=== PATIENT | female | born 1995 | race American Indian/Alaskan Native ===

== ENCOUNTER 2017-07-25 09:00 | Inpatient (IN) | payer OTHER ==
[2017-07-25] MEDS ORDERED: TUBERCULIN PPD 5 TU/0.1ML SYRINGE (IN PATIENT USE ONLY) ID ONE (13:54)
[2017-07-25] MEDS ORDERED: BUTORPHANOL TARTRATE 1 MG/ML VIAL IVPB ONE (14:50)
[2017-07-25] MEDS ORDERED: PROMETHAZINE HCL 25 MG/1 ML VIAL IVPUSH ONE (14:50)
[2017-07-25] MEDS ORDERED: DINOPROSTONE 10 MG VAGINAL SUPPOSITORY VG ONE (15:00)
[2017-07-25 15:06] LABS: BASOPHIL 0.4 % (0-2.0); EOSINOPHIL 1.1 % (0-4.5); MCH 28.5 pg (25.7-33.7); MEAN CELL VOLUME 83.8 fl (80-96); NEUTROPHILS 73.2 % (42.8-82.8); PLATELET COUNT 180 K/MM3 (134-434); RDW 16.3 % (11.6-15.6); WHITE BLOOD COUNT 7.7 K/mm3 (4.0-10.0)
[2017-07-25 15:09] VITALS: BMI 29.5
[2017-07-25 15:18] LABS: INR 0.88 (0.82-1.09); PROTHROMBIN TIME (PATIENT) 9.7 SEC (9.98-11.88)
[2017-07-25 15:21] LABS: ACTIVATED PTT 29.9 SECONDS (26.9-34.4)
[2017-07-25 15:31] LABS: ANION GAP 10 (8-16); CALCIUM 7.8 mg/dL (8.5-10.1); CO2 21 mmol/L (21-32); CREATININE 0.7 mg/dL (0.55-1.02); GLUCOSE,RANDOM 106 mg/dL (74-106)
--- NOTE | 2017-07-25 16:51 | HP ---
Past Medical History - Admission History of Present Illness: 22 y/o with SIUP at 37.5 weeks gestation (EDC 08/10/17) was seen with MFM today for h/o GDMA2 (on Glyburide 2.5mg daily). Ultrasound showed EFW <10%ile and elevated MCA dopplers concerning for head sparing IUGR. Pt sent to L&D for NST and they recommend delivery. comlpicated by GDMA2 - on glyburide , and IUGR. Otherwise uncomplicated care. GBS positive. HIV negative. History Source: Patient, Medical Record Limitations to Obtaining History: No Limitations - Past Medical History Cardiovascular: No: HTN, NC Pulmonary: No: Asthma Gastrointestinal: No: Gastritis, GERD Hepatobiliary: No: Hepatitis B, Hepatitis C Renal/: No: Hematuria Reproductive: No: Fibroids, PID, Polycystic Ovary Syndrome ...: 1 ...Para: 0 ...Term: 0 ...: 0 ...Spon : 0 ...Induced : 0 ...Multiple Gestation: 0 ...EDC by Ric: 08/10/17 Infectious Disease: No: HIV Psych: No: Bipolar, Depression Endocrine: Yes: Diabetes Mellitus (gestational) - Past Surgical History Past Surgical History: Yes: None Hx Myomectomy: No Hx Transabdominal Cerclage: No - Smoking History Smoking history: Never smoked Have you smoked in the past 12 months: No - Alcohol/Substance Use Hx Alcohol Use: No - Social History Usual Living Arrangement: Yes: With Spouse ADL: Independent History of Recent Travel: No Home Medications - Allergies Allergies/Adverse Reactions: Allergies Allergy/AdvReac Type Severity Reaction Status Date / Time No Known Allergies Allergy Verified 07/25/17 13:59 - Home Medications Home Medications: Ambulatory Orders Vit/Iron Fumarate/FA [ Tablet] 1 tab PO DAILY 05/09/17 Ferrous Sulfate [Feosol] 325 mg PO DAILY 07/25/17 Glyburide 2.5 mg PO HS 07/25/17 Review of Systems - Review of Systems Constitutional: reports: No Symptoms Eyes: reports: No Symptoms HENT: reports: No Symptoms Neck: reports: No Symptoms Cardiovascular: reports: No Symptoms Respiratory: reports: No Symptoms Gastrointestinal: reports: No Symptoms Genitourinary: reports: No Symptoms Breasts: reports: No Symptoms Reported Musculoskeletal: reports: Other (right arm/hand discomfort and numbness c/w carpal tunnel) Integumentary: reports: No Symptoms Neurological: reports: No Symptoms Endocrine: reports: No Symptoms Hematology/Lymphatic: reports: No Symptoms Psychiatric: reports: No Symptoms Physical Exam - Maternity Vital Signs: Vital Signs Temperature 97.6 F 07/25/17 16:00 Pulse Rate 73 07/25/17 16:00 Respiratory Rate 18 07/25/17 16:00 Blood Pressure 126/89 07/25/17 16:00 O2 Sat by Pulse Oximetry (%) Constitutional: Yes: Well Nourished, No Distress, Calm Eyes: Yes: Conjunctiva Clear, EOM Intact HENT: Yes: Atraumatic, Normocephalic Neck: Yes: Supple, Trachea Midline Cardiovascular: Yes: Regular Rate and Rhythm Lungs: Clear to auscultation Breast(s): Yes: WNL - Abdominal Exam/OB Number of Fetuses: Single Presentation: Vertex Contractions: No Category: I Accelerations: None Decelerations: None - Vaginal Exam/OB Vaginal Bleediing: No Dilatation (cm): 0 Effacement (%): 0 Amniotic Membrane Status: Intact Presentation: Vertex/Position Station: -3 - Physical Exam Edema: Yes Edema: LLE: 1+, RLE: 1+ Psychiatric: Yes: Alert, Oriented - Labs Lab Results: CBC, BMP 07/25/17 14:30 07/25/17 14:30 Hemorrhage Risk Assessment - Risk Factors Medium Risk Factors: Yes: None High Risk Factors: Yes: None Risk Score: 1 Risk Level: Medium Risk Problem List - Problems (1) Diabetes, gestational Code(s): O24.419 - GESTATIONAL DIABETES MELLITUS IN , UNSP CONTROL (2) Intrauterine growth restriction affecting care of mother Code(s): O36.5990 - MATERN CARE FOR OTH OR SUSP POOR FETL GRTH, UNSP TRI, UNSP Assessment/Plan 22 y/o with SIUP at 37.5 weeks, IUGR with elevated MCA dopplers and A2GDM - AFVSS - IUGR - for labor induction - cervidil placed at approx 1445, cervix closed. Will re assess in 12 hours for possible 2nd cervidil vs. pitocin - GDMA2- will check BGs AC/HS at this time, treat as appropriate, when in active labor will increase to Q2 to determine need for insulin - GBS positive - for ampicillin with ROM/labor
[2017-07-25 17:46] LABS: SGOT/AST 21 U/L (15-37)
[2017-07-25 18:56] LABS: URINE APPEARANCE CLEAR; URINE BILIRUBIN NEGATIVE (NEGATIVE); URINE BLOOD 1+ (NEGATIVE); URINE COLOR STRAW; URINE GLUCOSE (UA) NEGATIVE (NEGATIVE); URINE KETONE NEGATIVE (NEGATIVE); URINE LEUK ESTERASE NEGATIVE (NEGATIVE); URINE NITRITE NEGATIVE (NEGATIVE); URINE UROBILINOGEN NEGATIVE mg/dL (0.2-1.0)
[2017-07-25 18:57] LABS: URINE PROTEIN 2+ (NEGATIVE)
[2017-07-25 18:59] LABS: URINE BACTERIA RARE /hpf (NONE SEEN); URINE RBC 13 /hpf (0-3); URINE WBC 1 /hpf (3-5)
[2017-07-25] MEDS ORDERED: ELECTROLYTE-148 SOLN 1,000 ML IV SCH (20:00)
[2017-07-26] MEDS ORDERED: ONDANSETRON 4 MG/2 ML VIAL IVPB PRN (00:50)
[2017-07-26] MEDS ORDERED: CITRIC ACID/SODIUM CITRATE 30 ML UNIT-DOSE CUP PO ONE (00:52)
--- NOTE | 2017-07-26 01:04 | PN ---
Progress Note (short form) - Note Progress Note: 22 yo , @ 37.6 weeks gestation, admitted for IOL due to IUGR. Patient is GDMA and was on Glyburide. FHR : + early decelerations Hyder : + contactions VE : 3-4 / 100/-2 A/P : IUP @ 37 weeks IUGR GDMA R/O Pre - Eclampsia Pre op for Consent signed Prep and shave Anesthesia to see patient
[2017-07-26 01:19] LABS: ALBUMIN 2.6 g/dl (3.4-5.0); ANION GAP 13 (8-16); CALCIUM 7.8 mg/dL (8.5-10.1); CO2 20 mmol/L (21-32); CREATININE 0.6 mg/dL (0.55-1.02); GLUCOSE,RANDOM 91 mg/dL (74-106); SGOT/AST 21 U/L (15-37); SGPT/ALT 29 U/L (12-78)
[2017-07-26 01:20] LABS: ALK PHOS 257 U/L (45-117); BILIRUBIN,TOTAL 0.3 mg/dL (0.2-1.0); TOT PROT 6.2 g/dl (6.4-8.2)
[2017-07-26] MEDS ORDERED: METHYLERGONOVINE MALEATE 0.2 MG/1 ML AMP IM PRN (02:22)
[2017-07-26 02:23] LABS: ARTERIAL BLD GAS O2 SATURATION 21.6 % (90-98.9); ARTERIAL BLOOD GAS BASE EXCESS -3.2 meq/l (-2-2); ARTERIAL BLOOD GAS HCO3 25.9 meq/L (22-26)
[2017-07-26 02:24] LABS: ARTERIAL BLOOD GAS pH 7.23 (7.35-7.45)
[2017-07-26 02:25] LABS: ARTERIAL BLOOD GAS PO2 15.2 mmHg (80-100)
[2017-07-26 02:27] LABS: VENOUS BLOOD GAS HCO3 21.8 meq/L (19-25); VENOUS PH 7.31 (7.32-7.42)
--- NOTE | 2017-07-26 02:29 | OP ---
Operative Note - Note: Operative Date: 07/26/17 Pre-Operative Diagnosis: Non Reassuring Heart rate / IUGR / GDMA Operation: Primary low transverse Findings: SGA baby girl Post-Operative Diagnosis: Same as Pre-op Surgeon: Cristina Rodríguez [employer]ash[employer] Designer: Virginia Braxton Anesthesia: Spinal Specimens Removed: Placenta Estimated Blood Loss (mls): 600
[2017-07-26] MEDS ORDERED: AMPICILLIN 2 GM/100 ML BAG (PRE-DOCKED) IVPB ONE (03:15)
[2017-07-26] MEDS ORDERED: MAGNESIUM 4GM/H20 - 100 ML IVPB ONE (04:45)
[2017-07-26] MEDS: OXYTOCIN 20 UNITS in 0.9% NS 1,000 ML IV SCH ×2 (05:15→16:29)
[2017-07-26] MEDS: MAGNESIUM SULFATE 20GM/500ML - 500 ML IVPB SCH ×2 (05:45→17:34)
[2017-07-26 09:30] LABS: MCH 28.2 pg (25.7-33.7); MCHC 33.3 g/dl (32.0-36.0); MEAN CELL VOLUME 84.8 fl (80-96); MEAN PLT VOLUME 9.2 fl (7.5-11.1); PLATELET COUNT 193 K/MM3 (134-434); RDW 16.2 % (11.6-15.6); WHITE BLOOD COUNT 17.8 K/mm3 (4.0-10.0)
[2017-07-26 10:27] LABS: ALBUMIN 2.1 g/dl (3.4-5.0); ANION GAP 10 (8-16); CO2 22 mmol/L (21-32); CREATININE 0.7 mg/dL (0.55-1.02); GLUCOSE,RANDOM 103 mg/dL (74-106); SGOT/AST 23 U/L (15-37); SGPT/ALT 27 U/L (12-78)
[2017-07-26 10:29] LABS: ALK PHOS 219 U/L (45-117); BILIRUBIN,TOTAL 0.4 mg/dL (0.2-1.0); TOT PROT 5.3 g/dl (6.4-8.2)
[2017-07-26] MEDS ORDERED: ACETAMINOPHEN 1000 MG/100 ML VIAL (NON FORMULARY) IVPB PRN (16:48)
[2017-07-26] MEDS: PRENATAL VITAMINS W/ FOLIC ACID TABLET (FP) PO SCH (17:02)
[2017-07-27] MEDS: SIMETHICONE 80 MG TAB.CHEW (FP) PO PRN ×5 (00:41→22:14)
[2017-07-27] MEDS: oxyCODONE HCL 5 MG TABLET PO PRN ×5 (00:41→22:14)
[2017-07-27] MEDS ORDERED: BISACODYL 10 MG SUPP.RECT RC PRN (02:22)
[2017-07-27] MEDS: OXYTOCIN 20 UNITS in 0.9% NS 1,000 ML IV SCH (08:56)
[2017-07-27] MEDS: PRENATAL VITAMINS W/ FOLIC ACID TABLET (FP) PO SCH (09:24)
--- NOTE | 2017-07-27 09:33 | PN ---
Progress Note, Physician Chief Complaint: 22 y/o female s/p C/S, day 2, currently with urinary retention, rod was reinserted, draining copious amount of urine. Patient is afebrile, no pain. - Current Medication List Current Medications: Active Medications Acetaminophen (Ofirmev Injection -) 1,000 mg IVPB Q6H PRN PRN Reason: PAIN Last Admin: 07/26/17 16:20 Dose: 1,000 mg Bisacodyl (Dulcolax Suppository -) 10 mg RC PRN PRN PRN Reason: CONSTIPATION Diphenhydramine HCl (Benadryl Injection -) 25 mg IVPUSH Q4H PRN PRN Reason: Pruritis Last Admin: 07/26/17 08:15 Dose: 25 mg Diphtheria/Tetanus/Acell Pertussis (Boostrix -) 0.5 ml IM .ONCE ONE Stop: 07/28/17 10:01 Oxytocin/Sodium Chloride (Normal Saline+20 Units Oxytocin -) 1,000 mls @ 125 mls/hr IV ASDIR ARGELIA Last Admin: 07/27/17 08:56 Dose: Not Given Methylergonovine Maleate (Methergine Injection -) 0.2 mg IM Q4H PRN PRN Reason: Excessive Bleeding (L&D) Oxycodone HCl (Roxicodone -) 5 mg PO Q4H PRN PRN Reason: PAIN LEVEL 1-5 Last Admin: 07/27/17 06:30 Dose: 5 mg Multivit/Folic Acid/Iron ( Vitamins (Sjr) -) 1 tab PO DAILY ARGELIA Last Admin: 07/27/17 09:24 Dose: 1 tab Simethicone (Mylicon -) 80 mg PO Q4H PRN PRN Reason: GAS Last Admin: 07/27/17 06:30 Dose: 80 mg - Objective Vital Signs: Vital Signs Temperature 99 F 07/27/17 06:00 Pulse Rate 82 07/27/17 06:00 Respiratory Rate 20 07/27/17 06:00 Blood Pressure 120/98 07/27/17 06:00 O2 Sat by Pulse Oximetry (%) 100 07/26/17 05:15 Constitutional: Yes: Well Nourished, No Distress, Calm Eyes: Yes: WNL HENT: Yes: WNL Neck: Yes: WNL Cardiovascular: Yes: WNL Respiratory: Yes: WNL Gastrointestinal: Yes: Normal Bowel Sounds, Soft ...Rectal Exam: Yes: Deferred Genitourinary: Yes: Rod Present Breast(s): Yes: WNL Musculoskeletal: Yes: WNL Extremities: Yes: WNL Edema: LLE: Trace, RLE: Trace Peripheral Pulses WNL: Yes Integumentary: Yes: WNL Wound/Incision: Yes: Dressing Dry and Intact Neurological: Yes: Alert, Oriented ...Motor Strength: WNL Psychiatric: Yes: Alert, Oriented Labs: CBC, BMP 07/26/17 09:20 INR, PTT INR 0.88 (0.82-1.09) 07/25/17 14:30 Assessment/Plan Rod currently insitu due to urinary retention, plan to remove rod at noon, if urinary retention persist after the removal of the rod, consider urological consultation. Encourage ambulation once rod is removed. Continue post op care. Continue breast care
--- NOTE | 2017-07-27 10:54 | PN ---
Progress Note (short form) - Note Progress Note: Anesthesia postop note, POD#1. pat seen and examined. VSS. No post anesthesia complications.v signed off.
[2017-07-27 11:47] LABS: BASOPHIL 0.3 % (0-2.0); EOSINOPHIL 0.4 % (0-4.5); MCH 27.9 pg (25.7-33.7); MCHC 32.8 g/dl (32.0-36.0); MEAN PLT VOLUME 9.5 fl (7.5-11.1); NEUTROPHILS 81.2 % (42.8-82.8); PLATELET COUNT 171 K/MM3 (134-434); RDW 16.8 % (11.6-15.6); WHITE BLOOD COUNT 11.7 K/mm3 (4.0-10.0)
[2017-07-28] MEDS: SIMETHICONE 80 MG TAB.CHEW (FP) PO PRN ×4 (03:53→21:42)
[2017-07-28] MEDS: oxyCODONE HCL 5 MG TABLET PO PRN ×4 (03:53→21:42)
[2017-07-28] MEDS: ACETAMINOPHEN 325 MG TABLET (FP) PO PRN ×4 (03:53→21:43)
--- NOTE | 2017-07-28 09:01 | PN ---
Post Progress Note - Subjective Subjective: Pt seen/evaluated and doing well. Pain controlled. Tolerating diet, voiding, passing flatus, ambulating. Pt denies any BENJAMIN/epigastric or RUQ pain or changes in vision. BPs have been normal to mild range since delivery. Type of Delivery: Primary C/S Vital Signs: Vital Signs Temperature 98.2 F 07/28/17 06:00 Pulse Rate 84 07/28/17 06:00 Respiratory Rate 20 07/28/17 06:00 Blood Pressure 140/82 07/28/17 06:00 O2 Sat by Pulse Oximetry (%) 100 07/26/17 05:15 Uterus: Yes: Fundus Firm, Fundus below umbilicus Incision: Yes: Sutures intact Abdomen/GI: Yes: Abdomen soft, Tender (appropriate post surgical tenderness), Passing flatus, Tolerating PO Lochia: Yes: Rubra Lochia, amount: Small Extremities: Yes: Calves non-tender, Edema (+1 LE edema b/l , nonpitting. +2 DTRs b/l without clonus) Perineum: Yes: Intact Activity: Ambulating - Labs Labs: CBC WBC 11.7 K/mm3 (4.0-10.0) H D 07/27/17 06:00 RBC 4.03 M/mm3 (3.60-5.2) 07/27/17 06:00 Hgb 11.2 GM/dL (10.7-15.3) D 07/27/17 06:00 Hct 34.3 % (32.4-45.2) 07/27/17 06:00 MCV 85.0 fl (80-96) 07/27/17 06:00 MCH 27.9 pg (25.7-33.7) 07/27/17 06:00 MCHC 32.8 g/dl (32.0-36.0) 07/27/17 06:00 RDW 16.8 % (11.6-15.6) H 07/27/17 06:00 Plt Count 171 K/MM3 (134-434) 07/27/17 06:00 MPV 9.5 fl (7.5-11.1) 07/27/17 06:00 Neutrophils % 81.2 % (42.8-82.8) 07/27/17 06:00 Lymphocytes % 15.2 % (8-40) D 07/27/17 06:00 Monocytes % 2.9 % (3.8-10.2) L 07/27/17 06:00 Eosinophils % 0.4 % (0-4.5) 07/27/17 06:00 Basophils % 0.3 % (0-2.0) 07/27/17 06:00 Retic Count 2.41 % (0.5-1.5) H 07/25/17 17:15 Haptoglobin 65 mg/dL (34-200) 07/25/17 17:15 Problem List - Problems (1) Diabetes, gestational Code(s): O24.419 - GESTATIONAL DIABETES MELLITUS IN , UNSP CONTROL (2) Intrauterine growth restriction affecting care of mother Code(s): O36.5990 - MATERN CARE FOR OTH OR SUSP POOR FETL GRTH, UNSP TRI, UNSP (3) Pre-eclampsia affecting childbirth Code(s): O14.94 - UNSPECIFIED PRE-ECLAMPSIA, COMPLICATING CHILDBIRTH Assessment/Plan 22 y/o POD #2 s/p primary delivery for recurrent variable decelerations , also GDMA2 and PreEclampsia - AFVSS - PreEclampsia - s/p 24 hours of magnesium sulfate. Bps have been stable post delivery. Asymptomatic. Will monitor. - GDMA2- BGs stable post - will re evaluate as outpatient - pt with urinary retention on POD#1, now urinating without difficulty - regular diet, PO pain meds, routine care
[2017-07-28] MEDS ORDERED: DIPHTH,PERTUSS(ACELL),TET 0.5 ML DISP.SYRIN IM ONE (10:00)
[2017-07-28] MEDS: PRENATAL VITAMINS W/ FOLIC ACID TABLET (FP) PO SCH (10:16)
[2017-07-28] MEDS: OXYTOCIN 20 UNITS in 0.9% NS 1,000 ML IV SCH (10:23)
[2017-07-29] MEDS ORDERED: oxyCODONE HCL 5 MG TABLET ONE (06:20)
[2017-07-29] MEDS ORDERED: oxyCODONE HCL 5 MG TABLET PO PRN (06:25)
[2017-07-29] MEDS: SIMETHICONE 80 MG TAB.CHEW (FP) PO PRN (06:29)
[2017-07-29] MEDS: ACETAMINOPHEN 325 MG TABLET (FP) PO PRN (06:31)
[2017-07-29 08:38] LABS: BASOPHIL 0.2 % (0-2.0); EOSINOPHIL 2.2 % (0-4.5); MCH 28.1 pg (25.7-33.7); MCHC 33.1 g/dl (32.0-36.0); MEAN CELL VOLUME 84.8 fl (80-96); MEAN PLT VOLUME 8.3 fl (7.5-11.1); NEUTROPHILS 81.6 % (42.8-82.8); PLATELET COUNT 218 K/MM3 (134-434); RDW 16.8 % (11.6-15.6); WHITE BLOOD COUNT 10.6 K/mm3 (4.0-10.0)
--- NOTE | 2017-07-29 08:48 | PN ---
Progress Note (short form) - Note Progress Note: s/p primary c/s pod3 preoperative diagnosis variable heart deceleration, mild preeclampsia current condition stable, b/p stable but borderline normal bowel functions condition stable plan to continue current care vss
[2017-07-29] MEDS: PRENATAL VITAMINS W/ FOLIC ACID TABLET (FP) PO SCH (09:17)
[2017-07-29] MEDS ORDERED: LABETALOL HCL 200 MG TABLET (FP) PO SCH (10:15)
--- NOTE | 2017-07-29 12:56 | DS ---
Physical Exam-APPLIANCE INSTALLER Vital Signs: Vital Signs Temperature 99.0 F 07/29/17 10:00 Pulse Rate 89 07/29/17 10:00 Respiratory Rate 20 07/29/17 10:00 Blood Pressure 130/83 07/29/17 11:05 O2 Sat by Pulse Oximetry (%) 100 07/26/17 05:15 Labs: CBC, BMP 07/29/17 08:00 07/26/17 09:20 Delivery - Delivery Section: Primary, Low Flap Transverse Type of Anesthesia: Spinal Episiotomy/Laceration: None EBL (cc): 600 Delivery, Single - Stages of Labor Date 1st Stage Initiatied: 07/25/17 Time 1st Stage Initiated: 19:00 Date of Delivery: 07/26/17 Time of Delivery: 01:46 Time Placenta Delivered: 01:47 - Condition of Infant Geothermal Operations Engineer/Children'S Nursery Assistant Present: Yes Name: Marti Dominique Gender: Female Weight: 5 lb 9 oz Position: Left, OT Total Hours ROM (Hrs/Mins): 1h27m - 1 Minute Total Score: 9 5 Minutes Total Score: 9 - [place] Feeding Plan Initial Plan: Elected not to breastfeed exclusively throughout hospitalization Discharge Summary Reason For Visit: INDUCTION OF LABOR Current Active Problems Diabetes, gestational (Acute) Intrauterine growth restriction affecting care of mother (Acute) Pre-eclampsia affecting childbirth (Acute) Procedures: Principal: Primary delivery for variable decelerations. Was induced for IUGR and GDM. Hospital Course: Patient admitted on 07/25/17 from [facility] office due to IUGR - patient planned for labor induction. Cervidil placed 07/25 and early interventionist 07/26 due to recurrent variable decelerations patient underwent primary delivery. Patient also with antepartum diagnosis of A2GDM on glyburide - BGMs wnl throughout entire stay. Pt diagnosed with pre Eclampsia upon admission, was on magnesium after delivery. On post op day 3 patients blood pressure were stable in the normal to mild range on no medications and mom was asymptomatic. Patient was discharged home with instructions to follow up in office in 2 days for blood pressure check. Condition: Good - Instructions Diet, Activity, Other Instructions: Physical activity Resume your normal everyday activity as tolerated no heavy lifting or exercise until seen by your surgeon. You may walk unlimited amounts and climb stairs. You may resume driving the car when you feel safe and comfortable behind the wheel. No sexual activity as instructed. Wound care If there are tapes on the skin under leave them in place. They will peel off in the next 7 to 10 days. Do Not Peel them off. You may shower the day after surgery. If there are tapes present on the skin, you may shower over them. Diet There are no dietary restrictions. Eat healthy, high-fiber foods. Drink 6 to 8 glasses of liquid each day. This will assist in keeping your bowels regular. Pain management You may take Tylenol extra strength for mild pain. If any prescription medication is ordered should be taken as prescribed for moderate to severe pain. Call MD for any of the following: Severe pain not relieved by medication Fever of 101 or higher Excessive bleeding or drainage on dressing Inability to urinate Severe Headache, changes in your vision or upper abdominal pain not related to your incision Please follow up this week in the office for a blood pressure check. Referrals: Nadiya Angel DO [Staff Physician] - (DISCHARGE HOME; IF HEADACHE, BLURRED VISION, OR EPIGASTRIC DISCOMFORT CALL MD; PT INSTRUCTED TO FOLLOW UP IN OFFICE IN 2 DAYS FOR B/P CHECK INSTRUCTED BY DR ANGEL;) Disposition: HOME - Home Medications Comprehensive Discharge Medication List: Ambulatory Orders Vit/Iron Fumarate/FA [ Tablet] 1 tab PO DAILY 05/09/17 Ferrous Sulfate [Feosol] 325 mg PO DAILY 07/25/17 Glyburide 2.5 mg PO HS 07/25/17
[2017-07-29 13:12] VITALS: BP 133/80; PULSE 87; TEMP 98.8
--- NOTE | 2017-07-31 08:46 | PATH ---
Surgical Pathology Report Patient Name: GRETTA RIDDLE Med. Rec. #: [id number] /Age/Gender: 1995 (Age: 22) / F Account: [id number] Location: [facility] OBS/RIVETER HELPER Taken: 07/26/2017 Received: 07/28/2017 Reported: 07/31/2017 Physicians: Cristina Rodríguez M.D. Specimen(s) Received PLACENTA Clinical History , 37.6 weeks Primary c/section for nonreassuring heart rate Final Diagnosis PLACENTA, DELIVERY: INTACT, SMALL (<400 GM) THIRD TRIMESTER PLACENTA WITH MODERATE PREVILLOUS, PERIVILLOUS, AND PRECHORIONIC FIBRIN DEPOSITION, FOCAL CALCIFICATION THREE VESSEL UMBILICAL CORD, AND PLACENTAL MEMBRANES WITH FOCAL AMNION HYPERPLASIA. Electronically Signed Mata Galeano M.D. Gross Description The specimen is received fresh, labeled "placenta" and is a 377 gram, 16.0 x 12.5 x 2.3 cm placenta with attached membranes and umbilical cord. The attached membranes are gonzalez, translucent with focal opacities and insert marginally. The umbilical cord measures 14 cm in length and averages 0.9 cm in diameter. The cord inserts eccentrically, 6 cm to the nearest margin. No true knots or strictures are identified. Cut surface of the umbilical cord reveals 3 vessels. The surface is orozco-blue with fibrin deposition and appropriate caliber vessels. The maternal surface is red-brown and intact. Sectioning reveals red-brown, spongy parenchyma. No focal lesions are identified. Brass Sorter sections are submitted in three cassettes as follows: 1- membrane rolls and umbilical cord; 2-3- full thickness sections of placenta. 07/29/2017 [facility]07/29/2017
--- NOTE | 2017-08-25 00:54 | OP ---
DATE OF OPERATION: 07/25/2017 PREOPERATIVE DIAGNOSIS: Intrauterine at 37 weeks with gestational diabetes mellitus, intrauterine growth retardation, nonreassuring heart rate. POSTOPERATIVE DIAGNOSIS: Intrauterine at 37 weeks with gestational diabetes mellitus, intrauterine growth retardation, nonreassuring heart rate. PROCEDURE: Primary low transverse section. SURGEON: Cristina Rodríguez MD AD TAKER: Virginia Braxton MD ANESTHESIA: Spinal. COMPLICATIONS: None. ESTIMATED BLOOD LOSS: 600 mL. PROCEDURE: Patient was taken to the operating room where spinal anesthesia was administered. Patient was then prepped and draped in proper sterile fashion. A Pfannenstiel skin incision was made and carried down through the underlying layer of fascia. The fascia was incised in the midline and extended laterally. The superior aspect of the fascial incision was then grasped with a Serge clamp, elevated, and the rectus muscle was dissected off bluntly. Attention was then turned to the inferior aspect of the fascial incision, which in a similar fashion was then grasped with Serge clamp, elevated, and the rectus muscle was then dissected off bluntly. The rectus muscle was then in the midline. The peritoneum was identified and entered sharply with Metzenbaum scissors. The peritoneal incision was then incised using Metzenbaum scissors and extended superiorly and inferiorly with good visualization of the bladder. The vesicouterine peritoneum was then grasped with a pickup and entered sharply with Metzenbaum scissors. This incision was extended laterally and the bladder flap was created digitally. The bladder flap was then reinserted. The lower uterine segment was then incised using a 10-blade. The baby was then delivered atraumatically. Nose and mouth were suctioned. The infant was handed to the awaiting hand mexican food maker. The placenta was then removed manually. The uterus was exteriorized and cleared of all clots and debris. The uterine incision was repaired using 0 Biosyn in a running locked fashion. A 2nd layer of the same suture was used as a means to provide excellent hemostasis. The pelvis was irrigated. The uterus was returned to the abdomen. The peritoneum was closed using 2-0 Biosyn. The fascia was reapproximated using 0 Vicryl in a running fashion. The skin was closed in a subcuticular fashion using 3-0 Vicryl. The patient tolerated the procedure well. Patient was taken to PACU in stable condition. PATHOLOGY: Placenta. Michelle ALBRECHT/[id number] MTDD
== END 2017-07-29 15:00 | disposition home or self-care (01) | DRG 540 ==
LOC: JDEL 09:00 → JLDR 13:30 → J3W 07-26 17:18
PROVIDERS: ADMIT Obstetrics & Gynecology; ATTEND Obstetrics & Gynecology
PROC: 3E0P7GC Introduction of Other Therapeutic Substance into Female Reproductive, Via Natural or Artificial Opening (ICD-10-PCS; 2017-07-25)
PROC: 10D00Z1 Extraction of Products of Conception, Low, Open Approach (ICD-10-PCS; principal; 2017-07-26)
DX: O14.03 Mild to moderate pre-eclampsia, third trimester (principal); O76 Abnormality in fetal heart rate and rhythm complicating labor and delivery; O24.429 Gestational diabetes mellitus in childbirth, unspecified control; Z3A.37 37 weeks gestation of pregnancy; Z22.330 Carrier of Group B streptococcus; O36.5930 Maternal care for other known or suspected poor fetal growth, third trimester, not applicable or unspecified; Z37.0 Single live birth
CPT/HCPCS: 36415; 36600; 59025; 71020-TC; 80048; 80053; 81003; 81015; 82803; 82977; 83010; 83735; 84450; 84460; 84550; 85025; 85027; 85044; 85610; 85730; 86593; 86850; 86900; 86901; 87086; 88307-TC; 90715

== ENCOUNTER 2022-11-27 06:42 | Inpatient (IN) | payer OTHER ==
[2022-11-27] MEDS ORDERED: IBUPROFEN 800 MG/8 ML IJ IVPB PRN (07:32)
[2022-11-27] MEDS ORDERED: SENNOSIDES/DOCUSATE COMBO (SENNA PLUS) TABLET (UD) PO PRN (07:32)
[2022-11-27] MEDS ORDERED: ACETAMINOPHEN 325 MG TABLET (FP) PO PRN (07:32)
[2022-11-27] MEDS ORDERED: METHYLERGONOVINE MALEATE 0.2 MG/1 ML AMP IM PRN (07:32)
[2022-11-27] MEDS ORDERED: ELECTROLYTE-148 SOLN 1,000 ML IV SCH (07:45)
[2022-11-27] MEDS ORDERED: OXYTOCIN 20 UNITS in 0.9% NS 20 UNIT/1,000 ML INFUS.BAG IV SCH (07:45)
[2022-11-27] MEDS ORDERED: OXYTOCIN 30 UNITS in 0.9% NS 30 UNIT/500 ML INFUS.BAG IVPB ONE (07:49)
[2022-11-27 07:50] VITALS: BMI 30.7
[2022-11-27] MEDS ORDERED: FENTANYL CITRATE/PF 50 MCG/ML VIAL ONE (07:50)
[2022-11-27] MEDS ORDERED: METOCLOPRAMIDE HCL INJECTION 10 MG/2 ML VIAL ONE (07:50)
[2022-11-27] MEDS ORDERED: ceFAZolin SODIUM 1 GM VIAL ONE (07:50)
[2022-11-27] MEDS ORDERED: PHENYLEPHRINE HCL 10 MG/1 ML SINGLE DOSE VIAL ONE (07:50)
[2022-11-27] MEDS ORDERED: morphine SULFATE/PF 1 MG/2 ML (2cc Syringe - QUVA) ONE (07:50)
[2022-11-27] MEDS ORDERED: ONDANSETRON 4 MG/2 ML VIAL ONE (07:50)
[2022-11-27] MEDS ORDERED: glyBURIDE 2.5 MG TABLET PO SCH (08:00)
[2022-11-27] MEDS ORDERED: morphine SULFATE/PF 1 MG/2 ML (2cc Syringe - QUVA) IT ONE (08:22)
[2022-11-27] MEDS ORDERED: KETOROLAC TROMETHAMINE 30 MG/1 ML VIAL ONE (08:43)
[2022-11-27] MEDS ORDERED: ONDANSETRON 4 MG/2 ML VIAL IVPUSH PRN (09:27)
[2022-11-27 09:50] LABS: CORD BASE EXCESS -2.1 mmol/L (0-2); CORD HCO3 25.2 mmHg (20-29); CORD PCO2 52.6 mmHg (30-78); CORD pH 7.299 (7.14-7.44)
[2022-11-27] MEDS ORDERED: OXYTOCIN 20 UNITS in 0.9% NS 20 UNIT/1,000 ML INFUS.BAG IV ONE (11:03)
[2022-11-27] MEDS: FERROUS SO4 325 MG TABLET (FP) PO SCH (15:11)
[2022-11-27] MEDS: PRENATAL VITAMINS W/ FOLIC ACID TABLET (FP) PO SCH (15:11)
[2022-11-28] MEDS: SIMETHICONE 80 MG TAB.CHEW (FP) PO PRN ×5 (00:46→23:51)
[2022-11-28] MEDS ORDERED: BISACODYL 10 MG SUPP.RECT RC PRN (07:32)
[2022-11-28] MEDS: PRENATAL VITAMINS W/ FOLIC ACID TABLET (FP) PO SCH (09:03)
[2022-11-28] MEDS: FERROUS SO4 325 MG TABLET (FP) PO SCH (09:03)
[2022-11-28] MEDS: IBUPROFEN 600 MG TABLET (FP) PO PRN ×4 (09:03→23:50)
[2022-11-28 09:17] LABS: BASO % 0.2 % (0-2.0); EOS % 0.7 % (0-4.5); HEMATOCRIT 35.6 % (32.4-45.2); HEMOGLOBIN 11.4 GM/dL (10.7-15.3); LYMPH % 12.3 % (8-40); MCH 26.9 pg (25.7-33.7); MCHC 32.1 g/dl (32.0-36.0); MEAN CELL VOLUME 83.7 fl (80-96); MEAN PLT VOLUME 7.9 fl (7.5-11.1); NEUT % 82.8 % (42.8-82.8); PLATELET COUNT 235 10^3/uL (134-434); RBC 4.25 M/mm3 (3.60-5.2); RDW 15.1 % (11.6-15.6); WHITE BLOOD COUNT 11.4 K/mm3 (4.0-10.0)
[2022-11-28] MEDS ORDERED: FLU VACC QS2022-23(6MOS UP)/PF 60 MCG/0.5 ML SYRINGE IM ONE (10:00)
[2022-11-28] MEDS ORDERED: DIPHTH,PERTUSS(ACELL),TET 0.5 ML DISP.SYRIN IM ONE (10:00)
[2022-11-28] MEDS ORDERED: oxyCODONE HCL 5 MG TABLET PO PRN ×2 (19:32)
[2022-11-29] MEDS: IBUPROFEN 600 MG TABLET (FP) PO PRN ×3 (06:08→20:45)
[2022-11-29] MEDS ORDERED: DIPHTH,PERTUSS(ACELL),TET 0.5 ML DISP.SYRIN IM ONE ×4 (10:00→21:45)
[2022-11-29] MEDS ORDERED: FLU VACC QS2022-23(6MOS UP)/PF 60 MCG/0.5 ML SYRINGE IM ONE (10:00)
[2022-11-29] MEDS: FERROUS SO4 325 MG TABLET (FP) PO SCH (10:47)
[2022-11-29] MEDS: PRENATAL VITAMINS W/ FOLIC ACID TABLET (FP) PO SCH (10:47)
[2022-11-29] MEDS: SIMETHICONE 80 MG TAB.CHEW (FP) PO PRN ×2 (12:58→20:45)
[2022-11-30] MEDS: SIMETHICONE 80 MG TAB.CHEW (FP) PO PRN (06:18)
[2022-11-30] MEDS: IBUPROFEN 600 MG TABLET (FP) PO PRN (06:18)
[2022-11-30 09:09] LABS: BASO % 0.3 % (0-2.0); EOS % 1.4 % (0-4.5); HEMATOCRIT 37.5 % (32.4-45.2); LYMPH % 16.7 % (8-40); MCH 26.9 pg (25.7-33.7); MCHC 31.9 g/dl (32.0-36.0); MEAN CELL VOLUME 84.2 fl (80-96); MONO % 5.1 % (3.8-10.2); NEUT % 76.5 % (42.8-82.8); PLATELET COUNT 303 10^3/uL (134-434); RBC 4.45 M/mm3 (3.60-5.2); RDW 15.1 % (11.6-15.6); WHITE BLOOD COUNT 9.2 K/mm3 (4.0-10.0)
[2022-11-30] MEDS: PRENATAL VITAMINS W/ FOLIC ACID TABLET (FP) PO SCH (10:12)
[2022-11-30] MEDS: FERROUS SO4 325 MG TABLET (FP) PO SCH (10:12)
[2022-11-30 11:18] VITALS: BP 106/71; PULSE 105; RESP 16; TEMP 97.8
== END 2022-11-30 12:55 | disposition home or self-care (01) | DRG 540 ==
LOC: JLDR 06:42 → J3W 11:53
PROVIDERS: ADMIT Obstetrics & Gynecology; ATTEND Obstetrics & Gynecology
PROC: 10D00Z1 Extraction of Products of Conception, Low, Open Approach (ICD-10-PCS; principal; 2022-11-27)
DX: O34.211 Maternal care for low transverse scar from previous cesarean delivery (principal); O24.424 Gestational diabetes mellitus in childbirth, insulin controlled; Z3A.38 38 weeks gestation of pregnancy; Z37.0 Single live birth
CPT/HCPCS: 36415; 36600; 80048; 82803; 82962; 85025; 85610; 85730; 86780; 86850; 86900; 86901; 88307-TC; 90715; C9803-CS; G0008; Q2036; U0003; U0005